=== PATIENT | male | born 2000 | race Hispanic/Latino ===

== ENCOUNTER 2020-05-04 19:23 | Emergency (ER) | payer OTHER ==
--- NOTE | 2020-05-04 20:03 | RAD ---
RIGHT ANKLE THREE VIEWS: 05/04/20 HISTORY: Right ankle pain, injury. FINDINGS/IMPRESSION: Soft tissue swelling is present. The ankle mortise is maintained. No acute fracture or dislocation is identified. POS: [facility]
== END 2020-05-04 20:04 | disposition home or self-care (01) ==
LOC: MADERS 19:23
DX: S93.491A Sprain of other ligament of right ankle, initial encounter (principal); X50.9XXA Other and unspecified overexertion or strenuous movements or postures, initial encounter